=== PATIENT | male | born 1935 | race Caucasian/White ===

== ENCOUNTER → 2017-01-30 | Outpatient (CLI) | payer MEDICARE, BC ==
[~2017-01-30] MED LIST: ADVICAP PO; CODOIL PO; COQ1100C PO; LUTE6TAB2 PO; TAB-TAB PO; VITA20002 PO; VITATAB11 PO
[2017-01-30 13:30] LABS: AUTOMATED NEUTROPHIL # 5.2 TH/MM3 (1.8-7.7); BASOPHIL # 0.1 TH/MM3 (0-0.2); BASOPHIL % 0.9 % (0.0-2.0); EOSINOPHIL % 0.6 % (0.0-4.0); HEMATOCRIT 41.9 % (39.0-51.0); HEMO FLAGS DIFF FINAL; LYMPH % 15.9 % (9.0-44.0); LYMPHOCYTE # 1.1 TH/MM3 (1.0-4.8); MEAN CELL VOLUME 95.3 FL (80.0-100.0); MEAN CORPUSCULAR HEMOGLOBIN 33.2 PG (27.0-34.0); MEAN CORPUSCULAR HGB CONC 34.8 % (32.0-36.0); MONO % 8.8 % (0.0-8.0); NEUT % 73.8 % (16.0-70.0); PLATELET COUNT 288 TH/MM3 (150-450); RED CELL DISTRIBUTION WIDTH 13.6 % (11.6-17.2)
[2017-01-30 13:36] LABS: ANION GAP 6 MEQ/L (5-15); AST (GOT) 28 U/L (15-37); BICARBONATE 29.2 MEQ/L (21.0-32.0); BLOOD UREA NITROGEN 23 MG/DL (7-18); CHLORIDE 101 MEQ/L (98-107); GLOMERULAR FILTRATION RATE 64 ML/MIN (>89); GLUCOSE,FASTING 87 MG/DL (74-99); POTASSIUM 4.1 MEQ/L (3.5-5.1); SODIUM (NA) 136 MEQ/L (136-145)
[2017-01-30 13:48] LABS: ALKALINE PHOSPHATASE 43 U/L (45-117); ALT (GPT) 37 U/L (12-78); HDL CHOLESTEROL 84.6 MG/DL (40.0-60.0); LDL CHOLESTEROL 88 MG/DL (0-99); TOTAL BILIRUBIN ADULT 0.6 MG/DL (0.2-1.0)
== END ==
LOC: PLAB 09:42
PROVIDERS: ATTEND Family Medicine
DX: R53.81 Other malaise (principal); Z13.1 Encounter for screening for diabetes mellitus; Z13.220 Encounter for screening for lipoid disorders; Z13.29 Encounter for screening for other suspected endocrine disorder
CPT/HCPCS: 36415; 80053; 80061; 84443; 85025